=== PATIENT | male | born 1960 ===

== ENCOUNTER → 2021-01-03 08:00 | Outpatient (CLI) | payer OTHER ==
[~2021-01-03 08:00] MED LIST: COZAAR100 MG PO; NORVASC5 MG PO
== END | disposition home or self-care (01) ==
LOC: LAB 08:00 → ADM 09:00 → EDSTATUS 01-08 09:00 → CIR.AMB 01-08 09:00
PROVIDERS: ATTEND Urology
DX: N20.1 Calculus of ureter (principal); Z20.822 Contact with and (suspected) exposure to COVID-19; Z01.811 Encounter for preprocedural respiratory examination; Z01.810 Encounter for preprocedural cardiovascular examination